=== PATIENT | male | born 1970 | race Caucasian/White ===

== ENCOUNTER 2021-01-08 07:30 | Outpatient (CLI) | payer OTHER | END 2021-01-08 07:31 | disposition home or self-care (01) | LOC: DI 07:30 | DX: I51.7 Cardiomegaly (principal); R00.1 Bradycardia, unspecified; I70.0 Atherosclerosis of aorta; I87.8 Other specified disorders of veins | CPT/HCPCS: 93306 ==

== ENCOUNTER 2021-05-27 10:44 | Outpatient (CLI) | payer OTHER ==
--- NOTE | 2021-05-27 14:03 | MRI Report ---
PROCEDURE: Lumbar Spine W/O INDICATIONS: LUMBOSACRAL RADICULOPATHY TECHNIQUE: Noncontrast sagittal T1 spin echo and T2 fast echo, sagittal STIR, axial T1 and T2 fast spin echo thr ough the lumbar spine. In cases with scoliosis, additional coronal T2 fast spin echo may be performe d. COMPARISON: None. FINDINGS: Image quality: Excellent. Alignment and Curvature: No plain films are available for comparison. Thus, for numbering purposes, 5 lumbar type vertebral bodies will be presumed for the current report. This should be confirmed with plain film correlation prior to any lumbar spinal intervention. There is mild grade 1 anterolisthesi s of L5 on S1. Bone Marrow: Marrow is of normal overall signal. No acute vertebral body compression fractures. Mi nimal reactive signal throughout the endplates of the lumbar lower thoracic spine. Bilateral L5-S1 pa rs interarticularis defects. Spinal Cord: Conus medullaris terminates at the lower T12 level. Visualized cord demonstrates shelly l signal and size. Paraspinous Soft Tissues: No paravertebral masses. T12-L1: Moderate disc height loss and desiccation. No significant canal, nor foraminal stenosis. L1-L2: Normal in appearance. L2-L3: Mild disc desiccation. Mild diffuse disc bulge with small superimposed broad-based left pos terolateral protrusion. No significant canal stenosis. Mild left foraminal stenosis. No right foramin al stenosis. L3-L4: Mild disc height loss and desiccation. Mild facet and ligament flavum hypertrophy. Mild theodora l stenosis. Mild bilateral foraminal stenosis. L4-L5: Mild facet and ligament flavum hypertrophy. Mild canal stenosis. Mild right and severe left foraminal stenosis. Left L4 nerve root compression. L5-S1: Moderate disc height loss and desiccation. Mild diffuse disc bulge. Mild bilateral facet hyp ertrophy. Mild canal stenosis. Moderate bilateral foraminal stenosis. IMPRESSION: 1. Multilevel degenerative disc and facet disease, in addition to epidural lipomatosis and ligamentum flavum hypertrophy. 2. Grade I isthmic spondylolisthesis at L5-S1. 3. Mild multilevel canal stenoses. 4. Multilevel foraminal stenoses, worst at L4-L5 where there is associated intraforaminal nerve root compression. Recommend correlation with clinical symptoms to ascertain relevance of this finding. Reviewed by: Laura Pacheco MD on 05/27/2021 2:02 PM PDT Approved by: Laura Pacheco MD on 05/27/2021 2:02 PM PDT Station ID: [id number]
== END 2021-05-27 10:45 | disposition home or self-care (01) ==
LOC: DI 10:44
PROVIDERS: ATTEND Family Medicine
DX: M51.16 Intervertebral disc disorders with radiculopathy, lumbar region (principal); M48.061 Spinal stenosis, lumbar region without neurogenic claudication; M51.37 Other intervertebral disc degeneration, lumbosacral region; M48.07 Spinal stenosis, lumbosacral region; M47.26 Other spondylosis with radiculopathy, lumbar region; M47.817 Spondylosis without myelopathy or radiculopathy, lumbosacral region; M43.17 Spondylolisthesis, lumbosacral region